=== PATIENT | female | born 1950 | race Caucasian/White ===

== ENCOUNTER 2019-01-26 09:32 | Outpatient (RCR) | payer MEDICARE | END 2019-02-22 12:32 | disposition still patient (30) | LOC: OPPGERO 09:32 | DX: F41.1 Generalized anxiety disorder (principal); F32.9 Major depressive disorder, single episode, unspecified; K76.0 Fatty (change of) liver, not elsewhere classified; K21.9 Gastro-esophageal reflux disease without esophagitis; I10 Essential (primary) hypertension; G35 Multiple sclerosis; E11.9 Type 2 diabetes mellitus without complications; Z79.82 Long term (current) use of aspirin; Z90.49 Acquired absence of other specified parts of digestive tract; Z98.51 Tubal ligation status ==

== ENCOUNTER 2019-02-24 10:51 | Outpatient (RCR) | payer MEDICARE | END 2019-03-25 14:16 | LOC: OPPGERO 10:51 | DX: F41.1 Generalized anxiety disorder (principal); B39.9 Histoplasmosis, unspecified; F32.9 Major depressive disorder, single episode, unspecified; K21.9 Gastro-esophageal reflux disease without esophagitis; I10 Essential (primary) hypertension; G35 Multiple sclerosis; E11.9 Type 2 diabetes mellitus without complications; Z79.82 Long term (current) use of aspirin; Z79.899 Other long term (current) drug therapy; Z90.49 Acquired absence of other specified parts of digestive tract ==